=== PATIENT | female | born 1965 | race African-American/Black ===

== ENCOUNTER 2017-09-24 | Emergency (ER) | payer OTHER ==
[~2017-09-24] VITALS: Ht 170.2 cm; Wt 87.1 kg
[~2017-09-24] MED LIST: ASPI325T70 PO; ATORVASTATIN CA80 MG PO; CARV25TA2 PO; DOCU100C28 PO; ESOM20CA PO; ISOS20TA2 PO; LOSA100T2 PO; NIFE90TA9 PO; ONDA4TAB12 PO; PANT40TA5 PO; SENN-79 PO; SITA1TAB11 PO
[2017-09-24] MEDS ORDERED: IV NORMAL SALINE 1,000ML 1,000 ML IV SCH (01:30)
[2017-09-24] MEDS ORDERED: AZITHROMYCIN 250 MG TABLET. PO ONE (01:45)
[2017-09-24 01:50] LABS: BASO % 0 % (0-3); EOS % 0 % (0-3); HEMATOCRIT 39.2 % (36.0-47.0); HEMOGLOBIN 12.4 g/dL (12.0-15.5); LYMPH # 1.2 x10^3/uL (1.0-4.8); LYMPH % 12 % (24-48); MEAN CORPUSCULAR HEMOGLOBIN 26 pg (25-35); MEAN CORPUSCULAR HGB CONC 32 g/dL (31-37); MEAN CORPUSCULAR VOLUME 81 fL (79-100); MONO % 10 % (0-9); NEUT % 78 % (31-73); PLATELET COUNT 205 x10^3/uL (140-400); RED BLOOD COUNT 4.82 x10^6/uL (3.50-5.40); RED CELL DISTRIBUTION WIDTH 14.4 % (11.5-14.5); WHITE BLOOD COUNT 10.2 x10^3/uL (4.0-11.0)
--- NOTE | 2017-09-24 01:54 | PHYS DOC ---
General Chief Complaint: FALL/SYNCOPE Stated Complaint: SORE THROAT,CHILLS,ABD PAIN,DIARRHEA Time Seen by MD: 00:02 Source: patient, family, old records Exam Limitations: no limitations Problems: History of Present Illness Initial Comments Patient is 52/F to ED with family for fever, sore throat, fall and loose stools. Patient states she thinks she passed out standing up after using the restroom, states she fell forward and did hit her right malar on the floor. Denies chest pain/SOB/WATERS/neck pain, does admit to mild soreness at her right cheek no localized bony tenderness. Remembers getting up on her own after falling and getting into bed. Patient states for the past few days she's had chills, myalgias, generalized abdominal discomfort, and loose stools. She's had worsening sore throat and hasn't been eating or drinking much, says she went to bed yesterday afternoon because she was feeling ill and hasn't had PO since. Son and daughter at bedside, daughter says she heard her mom fall and immediately ran to check on her, saw that she had fallen and went to get her phone. She says that it took her "maybe 20 seconds" to get her phone and come back to her mom and she was already in bed. No seizure activity/post-ictal observed. 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 Tonight's symptoms identical to those of last November. 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) Severity: severe Modifying Factors: worse with movement, improves with rest Associated Symptoms: fever/chills, loss of appetite, malaise, syncope, weakness , other Allergies: Coded Allergies: lisinopril (Verified Allergy, Unknown, 12/24/15) Past Medical History Medical History: other (CAD, DM, GERD, HLP, HTN, syncope) Surgical History: angioplasty (2009), coronary bypass surgery (November 2016) Social History Smoker: non-smoker Alcohol: none Drugs: none Review of Systems Constitutional: see HPI EENTM: denies eye pain, denies blurred vision, denies ear discharge, denies nose congestion, other (no photophobia/ear discharge) Respiratory: denies cough, denies orthopnea, denies shortness of breath, denies wheezing Cardiovascular: denies chest pain, denies edema, denies palpitations, syncope Gastrointestinal: abdominal pain, diarrhea, denies nausea, denies vomiting Genitourinary: denies dysuria, denies frequency, denies hematuria, other ( decreased urine output) Musculoskeletal: denies back pain, denies joint swelling, denies neck pain Psychiatric/Neurological: denies headache, denies numbness, denies paresthesia , denies seizure, denies weakness Hematologic/Lymphatic: denies blood clots, denies easy bleeding, denies easy bruising Physical Exam General Appearance: WD/WN, no apparent distress Eyes: bilateral eye normal inspection, bilateral eye PERRL, bilateral eye EOMI Ear, Nose, Throat: hearing grossly normal, other (pharynx beefy red with exudate, airway patent. 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 Interpreted by me. Rapid strep negative Orthostatic vitals negative. 0337: Patient ambulatory to the bathroom states she's feeling much better with IV hydration. Relayed history consistent with near-syncope and fall, however I discussed possible observation admission the patient declines. Given her recent decreased by mouth intake due to illness and history of syncope with hypotension , CHESS score 0 patient will be discharged home. Remains free of WATERS/photophobia/ n/v/cp/sob. I discussed aggressive hydration and slow careful standing and ambulation for the next few days until follow-up with her doctor. Discussed signs and symptoms to monitor as well as indications for urgent return to the department. Her questions were answered to her satisfaction she expressed agreement and understanding with the treatment plan. Zithromax prescription for strep pharyngitis. Departure Time of Disposition: 03:43 Disposition: 01 HOME, SELF-CARE Diagnosis: Strep pharyngitis, Fall, Facial contusion, Near-sy Condition: IMPROVED Patient Instructions: Strep Throat, [id number] Additional Instructions: Please review the patient education materials given by ED staff. Ice to painful area 20 minutes 4-6 times daily as needed. Aggressive hydration with Gatorade or water. [id number] Tylenol and ibuprofen as needed for fever chills and body aches. [id number] analgesic throat sprays as needed for throat discomfort. Prescription: Zithromax Stand and walk very slowly and requests assistance as needed for the next few days until follow-up with your doctor. Follow-up with your doctor Tuesday or Tuesday for recheck. Return to ED with new or changing symptoms. AL SARABIA DO Sep 24, 2017 01:54
[2017-09-24 01:58] LABS: INFLUENZA A PATIENT NEGATIVE (NEGATIVE); INFLUENZA B PATIENT NEGATIVE (NEGATIVE)
[2017-09-24 02:01] LABS: ALBUMIN 3.7 g/dL (3.4-5.0); ALBUMIN/GLOBULIN RATIO 0.7 (1.0-1.7); CREATININE 0.8 mg/dL (0.6-1.0); GFR 90.8; POTASSIUM 4.7 mmol/L (3.5-5.1); TOTAL BILIRUBIN 0.6 mg/dL (0.2-1.0); TOTAL PROTEIN 8.8 g/dL (6.4-8.2)
[2017-09-24] MEDS ORDERED: AZIT250T PO (03:46)
[2017-09-24 04:00] VITALS: BP 145/71
--- NOTE | 2017-09-24 06:20 | EKG ---
[address] [address] Test Date: 2017-09-24 Test Time: 01:47:23 Pat Name: TORSTEN SÁNCHEZ Department: Room: Gender: F Mold Laminator: ESTEFANY : 1965 Requested By: AL SARABIA Order Number: [id number] Reading MD: Measurements Intervals [place] Rate: 79 P: 62 SD: 196 QRS: -18 QRSD: 74 T: 38 QT: 364 QTc: 418 Interpretive Statements SINUS RHYTHM LEFTWARD AXIS R-S TRANSITION ZONE IN V LEADS DISPLACED TO THE LEFT QRS(T) CONTOUR ABNORMALITY CONSISTENT WITH INFERIOR INFARCT PROBABLY OLD ABNORMAL ECG RI6.01 Compared to ECG 12/24/2015 17:40:25 Myocardial infarct finding now present T-wave abnormality no longer present
== END 2017-09-24 04:10 | disposition home or self-care (01) ==
LOC: ER
DX: J02.0 Streptococcal pharyngitis (principal); S00.83XA Contusion of other part of head, initial encounter; R55 Syncope and collapse; E11.9 Type 2 diabetes mellitus without complications; K21.9 Gastro-esophageal reflux disease without esophagitis; I10 Essential (primary) hypertension; I95.1 Orthostatic hypotension; I25.10 Atherosclerotic heart disease of native coronary artery without angina pectoris; E78.5 Hyperlipidemia, unspecified; Z95.1 Presence of aortocoronary bypass graft; Z88.8 Allergy status to other drugs, medicaments and biological substances; W18.09XA Striking against other object with subsequent fall, initial encounter; Y93.89 Activity, other specified; Y99.8 Other external cause status; Y92.89 Other specified places as the place of occurrence of the external cause
CPT/HCPCS: 36415; 80053; 83880; 84484; 85025; 87804; 87880; 93005; 96360; 99285; J0456; J7030